=== PATIENT | male | born 1990 | race Caucasian/White ===

== ENCOUNTER 2021-05-11 16:41 | Emergency (ER) | payer OTHER, SELFPAY ==
--- NOTE | 2021-05-11 16:43 | ED.LOWEXIN ---
HPI - Extremity Injury (Lower) General Chief Complaint: Extremity Problem,Nontraumatic Stated Complaint: rt knee swelling Time Seen by Provider: 05/11/21 16:43 Source: patient, family and RN notes reviewed History of Present Illness HPI Narrative: Patient is a 31-year-old male here with the spouse complaining of right knee pain. States right knee is red, warm to touch for last two days, denies any injury to area, states pain is increasing and swelling to right anterior knee is increasing, Patient has been using compression sock to decrease swelling. 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 No fever, chills,nausea or vomiting noted. No medications taken for pain. No other acute complaints, patient aware of plan of care. Some parts of this dictation were generated by voice recognition software and may contain typographical and/or grammatical inaccuracies. Related Data Home Medications Medication Instructions Recorded Confirmed No Home Medications 05/11/21 05/11/21 Allergies Allergy/AdvReac Type Severity Reaction Status Date / Time No Known Allergies Allergy Verified 05/11/21 16:55 Review of Systems Review of Systems: CONSTITUTIONAL: Denies fever, chills, or sweats. EYES: Denies visual changes, redness, or discharge. ENT: Denies rhinorrhea, congestion, sore throat, or otalgia. CARDIOVASCULAR: Denies chest pain, palpitations, or edema. RESPIRATORY: Denies cough or dyspnea. GASTROINTESTINAL: Denies abdominal pain, nausea, vomiting, or diarrhea. GENITOURINARY: Denies dysuria or hematuria. SKIN: Denies rash or itching. MUSCULOSKELETAL: reports of right knee swelling, redness, and pain. NEUROLOGIC: Denies headache, numbness, or weakness.. All other systems reviewed are negative, except as documented in HPI. PMFSH Comments At the time of my signature, I reviewed and agree with the nursing past medical, surgical, social, and family history. There is no relevant family history pertinent to the patient complaint. Exam Narrative: GENERAL: This is a well-nourished, well-developed patient, in no apparent distress. HEAD: normocephalic, atraumatic. EYES: PERRL. Sclera clear/white. Vision is grossly intact. EARS: External ears normal, NOSE: External nose normal with no obvious nasal discharge, nares without redness, no rhinorrhea. THROAT: Mucous membranes moist, \. NECK: Neck supple. CARDIOVASCULAR: Regular rate and rhythm without murmurs, gallops, or rubs. RESPIRATORY: Clear to auscultation. Breath sounds equal bilaterally. No wheezes, rales, or rhonchi. SKIN: warm, intact with no suspicious lesions or rash, good texture and turgor. NEURO: awake, alert, and oriented to person, place and time. There were no obvious focal neurologic abnormalities. EXTREMITIES: Anterior right knee erythemic with moderate edema and mild tenderness over the anterior aspect-suspected bursitis. Negative anterior drawer test. Range of motion to right lower extremity within normal limits. Positive strong right pedal pulse with capillary refill less than 2 seconds. Course Vital Signs Vital signs: Vital Signs Temperature 97.5 F L 05/11/21 16:56 Pulse Rate 60 05/11/21 16:56 Respiratory Rate 16 05/11/21 16:56 Blood Pressure 138/82 05/11/21 16:56 Pulse Oximetry 100 05/11/21 16:56 Temperature 97.5 F L 05/11/21 16:56 Pulse Rate 60 05/11/21 16:56 Respiratory Rate 16 05/11/21 16:56 Blood Pressure 138/82 05/11/21 16:56 Pulse Oximetry 100 05/11/21 16:56 Reviewed MDM - Extremity Injury (Lower) MDM Narrative Medical decision making narrative: Advised patient to wear nitza wrap to right knee as directed. Advised patient to complete steroid regimen as prescribed. Due to large joint bursitis, advised to complete antibiotic regimen as prescribed. Make sure to eat and drink with medication. Avoid any pressure to right knee and wear knee pads when working. If you develop any increase in swelling associ
[2021-05-11 16:56] VITALS: BP 138/82; PULSE 60; RESP 16; TEMP 36.4; O2SAT 100
== END 2021-05-11 17:15 | disposition home or self-care (01) ==
PROVIDERS: Emergency Provider Nurse Practitioner Family
DX: M70.51 Other bursitis of knee, right knee (principal)
CPT/HCPCS: 99213; G0463